=== PATIENT | female | born 1965 | race American Indian/Alaskan Native ===

== ENCOUNTER 2021-03-23 09:47 | Emergency (ER) | payer MEDICARE ==
[2021-03-23] MEDS ORDERED: LOSARTAN 50 MG TAB PO ONE (10:26)
[2021-03-23] MEDS ORDERED: metFORMIN 500 MG TAB PO ONE (10:26)
--- NOTE | 2021-03-23 10:30 | Emergency Department Report ---
ED General Adult HPI - General Chief complaint: Medical Clearance Stated complaint: UPPER BACK PAIN Time Seen by Provider: 03/23/21 10:13 Source: patient Mode of arrival: Ambulatory Limitations: No Limitations - History of Present Illness Initial comments: 55-year-old female with a past medical history of hypertension, diabetes, and coronary artery disease status post bypass surgery presents to the ER today with complaints of low back pain and requesting medication refills. Patient states that she has been out of her Metformin and her losartan since around of last year. She states that she currently does not have a consistent provider. She states that she typically goes from one urgent care clinic to another to get her medications. She states that she did have a appointment to see a provider at a [facility] for 5:00 today but they called her and told her that her 5:00 PM appointment is going to be too late and to reschedule her for follow-up on the 02 of April but she did not want to wait that long. Patient is on Metformin 1000 mg daily as well as losartan 100 mg daily. She also reports upper back pain but she has been having his upper back pain since November of last year. She denies any injury or trauma. She states that she thinks it could be due to the moving that she had been doing. She states that the pain seems to be worse with palpation of the area and movement of her upper back. She reports no worsening pain since it started. She reports no additional associated symptoms MD Complaint: Medication refill/upper back pain -: month(s) - Related Data Previous Rx's Medication Instructions Recorded Last Taken Type Losartan Potassium 100 mg PO DAILY #30 03/23/21 Unknown Rx Metformin HCl [metFORMIN] 1,000 mg PO DAILY #30 03/23/21 Unknown Rx methOCARBAMOL [Robaxin TAB] 500 mg PO Q6H PRN #30 tab 03/23/21 Unknown Rx Allergies Allergy/AdvReac Type Severity Reaction Status Date / Time No Known Allergies Allergy Unverified 03/23/21 10:06 ED Review of Systems ROS: Stated complaint: UPPER BACK PAIN Other details as noted in HPI Comment: All other systems reviewed and negative Respiratory: denies: cough, shortness of breath, wheezing Cardiovascular: denies: chest pain, palpitations Gastrointestinal: denies: abdominal pain, nausea, diarrhea Genitourinary: denies: urgency, dysuria, frequency, hematuria, discharge, abnormal menses, dyspareunia Musculoskeletal: back pain. denies: joint swelling, arthralgia, myalgia Skin: denies: rash, lesions, change in color, change in hair/nails, pruritus Neurological: denies: headache, weakness, numbness, paresthesias, confusion, abnormal gait, vertigo Psychiatric: denies: anxiety, depression, auditory hallucinations, visual hallucinations, homicidal thoughts, suicidal thoughts Hematological/Lymphatic: denies: easy bleeding, easy bruising, swollen glands ED Past Medical Hx - Medications Home Medications: Home Medications Medication Instructions Recorded Confirmed Last Taken Type Losartan Potassium 100 mg PO DAILY #30 03/23/21 Unknown Rx Metformin HCl [metFORMIN] 1,000 mg PO DAILY #30 03/23/21 Unknown Rx methOCARBAMOL [Robaxin TAB] 500 mg PO Q6H PRN #30 tab 03/23/21 Unknown Rx ED Physical Exam - General Limitations: No Limitations General appearance: alert, in no apparent distress - Head Head exam: Present: atraumatic, normocephalic, normal inspection - Eye Eye exam: Present: normal appearance, PERRL, EOMI Pupils: Present: normal accommodation - ENT ENT exam: Present: normal exam, mucous membranes moist - Neck Neck exam: Present: normal inspection, full ROM - Respiratory Respiratory exam: Present: normal lung sounds bilaterally. Absent: respiratory distress, wheezes, rales, rhonchi - Cardiovascular Cardiovascular Exam: Present: regular rate, normal rhythm, normal heart sounds - GI/Abdominal GI/Abdominal exam: Present: soft. Absent: distended, tenderness, guarding, rebound - Back Exam Back exam: Present: normal inspection, full ROM, paraspinal tenderness (right mid thoracic back ). Absent: CVA tenderness (R), CVA tenderness (L) - Neurological Exam Neurological exam: Present: alert, oriented X3, CN II-XII intact, normal gait - Psychiatric Psychiatric exam: Present: normal affect, normal mood - Skin Skin exam: Present: intact ED Course Vital Signs 03/23/21 03/23/21 03/23/21 10:09 10:38 10:52 Temperature 98.3 F 97.8 F Pulse Rate 103 H 103 H 96 H Respiratory 20 16 Rate Blood Pressure 198/102 198/102 Blood Pressure 198/103 [Right] O2 Sat by Pulse 98 100 Oximetry ED Medical Decision Making - Medical Decision Making 55-year-old female with a past medical history of hypertension, diabetes, and coronary artery disease status post bypass surgery presents to the ER today with complaints of low back pain and requesting medication refills. Patient states that she has been out of her Metformin and her losartan since around of last year. She states that she currently does not have a consistent provider. She states that she typically goes from one urgent care clinic to another to get her medications. She states that she did have a appointment to see a provider at a [facility] for 5:00 today but they called her and told her that her 5:00 PM appointment is going to be too late and to reschedule her for follow-up on the 02 of April but she did not want to wait that long. Patient is on Metformin 1000 mg daily as well as losartan 100 mg daily. She also reports upper back pain but she has been having his upper back pain since November of last year. She denies any injury or trauma. She states that she thinks it could be due to the moving that she had been doing. She states that the pain seems to be worse with palpation of the area and movement of her upper back. She reports no worsening pain since it started. She reports no additional associated symptoms. Patient is well-appearing, nontoxic and not in any significant distress. She is mentally stable, neurologically intact, and gait is normal. Patient blood sugar was 357, and her blood pressure was noted to be elevated during stay but that is because patient has been out of her medications for few months. Patient is currently only complains of thoracic back pain which she has been having since November. She has no chest pain, shortness of breath, leg swelling, dizziness, or any other neurological symptoms. At this time I do not see any indication for emergent intervention to treat her blood sugar blood pressure. Patient will be given a dose of her Metformin and losartan here in the ER and she will be given a refill on prescriptions for both. Stressed to patient the importance of finding a single primary care doctor to help manage her chronic medical conditions. Also recommend talking to the PCP about her chronic upper back pain she may need referral to orthospine specialist and MRI. Patient expressed understanding and agree with plan. Patient was stable at time of discharge. Critical care attestation.: If time is entered above; I have spent that time in minutes in the direct care of this critically ill patient, excluding procedure time. ED Disposition Clinical Impression: Medication refill, Chronic thoracic back pain Disposition: 01 HOME / SELF CARE / HOMELESS Is pt being admited?: No Does the pt Need Aspirin: No Condition: Stable Instructions: Nonspecific Chest Pain, Adult, Chronic Back Pain, [id number] Additional Instructions: I recommend that you get the prescription for the Metformin and the losartan filled and start taking it as prescribed. I also recommend that you purchase a glucometer from [id number] to start checking your blood sugars regularly and also purchasing a blood pressure monitor to also check your blood pressure regularly. Is important that you try to establish with a single provider to maintain your chronic medical problems and to continue monitoring your blood pressure, your blood sugar and for refills. A primary care doctor will be listed for you on your discharge instructions. Take the muscle relaxer as prescribed to help with your upper back pain, but you can talk to your PCP about the back pain and they can refer you to orthospine specialist or they can do an outpatient MRI for further evaluation. Return to the ER if your symptoms worsens in any way. Prescriptions: Losartan Potassium 100 mg PO DAILY #30 Metformin HCl [metFORMIN] 1,000 mg PO DAILY #30 methOCARBAMOL [Robaxin TAB] 500 mg PO Q6H PRN #30 tab PRN Reason: back pain Referrals: VICKY WESTFALL MD [Staff Physician] - 3-5 Days ADRIENNE WOOD MD [Staff Physician] - 3-5 Days SENAIT SCALES MD [Staff Physician] - 3-5 Days Time of Disposition: 10:33
[2021-03-23 10:54] VITALS: BP 198/103
== END 2021-03-23 10:54 | disposition home or self-care (01) ==
LOC: ED 09:47
DX: G89.29 Other chronic pain (principal); M54.6 Pain in thoracic spine; Z76.0 Encounter for issue of repeat prescription; Z79.899 Other long term (current) drug therapy
CPT/HCPCS: 99282